=== PATIENT | female | born 1955 | race Caucasian/White ===

== ENCOUNTER → 2021-08-28 | Day surgery (SDC) | payer OTHER ==
[~2021-08-28] VITALS: Ht 170.2 cm; Wt 72.6 kg
[~2021-08-28] MED LIST: CRESTOR5 MG PO; HCTZ25 MG PO; PRINIVIL20 MG PO; VITAMIN B-121000 MC1 PO; VITAMIN D PO
== END | disposition home or self-care (01) ==
LOC: FAS 08:23
DX: D12.3 Benign neoplasm of transverse colon (principal); I10 Essential (primary) hypertension; Z87.891 Personal history of nicotine dependence; Z85.048 Personal history of other malignant neoplasm of rectum, rectosigmoid junction, and anus; Z79.899 Other long term (current) drug therapy
CPT/HCPCS: J1610; J2704; J7120